=== PATIENT | male | born 1950 | race Caucasian/White ===

== ENCOUNTER 2017-01-29 10:25 | Emergency (ER) | payer MEDICARE ==
[2017-01-29 11:14] LABS: HEMOGLOBIN 15.9 gm/dl (14.0-17.5); RED BLOOD COUNT 5.03 M/UL (4.20-5.50); WHITE BLOOD COUNT 9.2 K/UL (4.5-11.0)
[2017-01-29 11:42] LABS: BUN/CREATININE RATIO 14 (0-10)
== END 2017-01-29 12:57 | disposition home or self-care (01) ==
LOC: ER1 10:25
PROVIDERS: Emergency Medicine
DX: R94.31 Abnormal electrocardiogram [ECG] [EKG] (principal); F17.200 Nicotine dependence, unspecified, uncomplicated; Z79.82 Long term (current) use of aspirin
CPT/HCPCS: 36415; 71020; 80053; 83880; 84484; 85025; 93005; 99285